=== PATIENT | female | born 1995 | race African-American/Black ===

== ENCOUNTER 2019-12-26 14:55 | Inpatient (IN) ==
[2019-12-26] MEDS ORDERED: BUTORPHANOL 2 MG/ML VIAL IV PRN (15:13)
[2019-12-26] MEDS ORDERED: MEPERIDINE 50 MG/1 ML VIAL IV PRN (15:13)
[2019-12-26] MEDS ORDERED: BUTORPHANOL 1 MG/ML VIAL IV PRN (15:13)
[2019-12-26] MEDS ORDERED: ONDANSETRON 4 MG/2 ML VIAL IV PRN (15:13)
[2019-12-26] MEDS ORDERED: DINOPROSTONE VAG GEL 10 MG SYRINGE VAG ONE (15:16)
[2019-12-26 15:35] LABS: Basophils % 0.4 % (0.0-0.8); Eosinophils # 0.1 10*3/uL (0.0-0.87); Eosinophils % 1.9 % (0.00-10.9); Hematocrit 32.5 VOL% (35.7-47.0); Hemoglobin 10.2 GM/DL (12.0-16.0); Immature Granulocytes % 0.4 %; Immature Granulocytes Absolute 0.03 #; Lymphocytes # 1.6 10*3/uL (1.4-4.0); Lymphocytes % 22.8 % (21.3-54.2); Mean Corpuscular HGB Conc 31.4 GM/DL (32-36); Mean Corpuscular Volume 80.6 FL (87-102); Mean Platelet Volume 11.9 FL (9.6-12.0); Monocytes % 8.7 % (1.7-12.7); Neutrophils % 65.8 % (38.7-73.9); Platelet Count 266 T/CUMM (130-400); Red Blood Count 4.03 MC/CUMM (3.8-5.5)
[2019-12-26 15:58] LABS: Alanine Aminotransferase 9 U/L (13-56); Albumin 3.1 G/DL (3.4-5.0); Alkaline Phosphatase 111 U/L (45-117); Aspartate Amino Transferase 28 U/L (0-37); Bilirubin,Total < 0.39 MG/DL (0.2-1.0); Blood Urea Nitrogen 13 MG/DL (7-18); Calcium 8.8 MG/DL (8.5-10.1); Estimated Glom Filtration Rate 127 ML/MIN; Glucose 81 MG/DL (74-106); Total Protein 7.5 G/DL (6.4-8.3); Uric Acid 3.9 MG/DL (2.6-6.0)
[2019-12-27] MEDS ORDERED: OXYTOCIN/LR 20 UNIT/1,000 ML BAG IV SCH (02:00)
[2019-12-27] MEDS: OXYTOCIN/LR 20 UNIT/1,000 ML BAG IV SCH ×2 (02:20→12:27)
[2019-12-27] MEDS: LACTATED RINGERS 1,000 ML IV SCH ×2 (05:00→07:14)
[2019-12-27] MEDS ORDERED: PROMETHAZINE 25 MG/1 ML VIAL IM ONE (07:22)
[2019-12-27] MEDS ORDERED: NALOXONE 0.4 MG/ML VIAL IV PRN (07:22)
[2019-12-27] MEDS ORDERED: CITRIC ACID/SODIUM CITRATE 30 ML UDCUP PO ONE (07:22)
[2019-12-27] MEDS ORDERED: ePHEDrine 50 MG/ML AMP IV PRN (07:22)
[2019-12-27] MEDS ORDERED: LACTATED RINGERS 1,000 ML IV ONE (07:22)
[2019-12-27] MEDS ORDERED: diphenhydrAMINE 50 MG/1 ML VIAL IV PRN ×2 (07:22)
[2019-12-27] MEDS ORDERED: ONDANSETRON 4 MG/2 ML VIAL IV ONE (07:22)
[2019-12-27] MEDS ORDERED: FAMOTIDINE 20 MG/2 ML VIAL IV ONE (07:22)
[2019-12-27] MEDS ORDERED: hydrOXYzine HCL 25 MG/1 ML VIAL IM PRN (07:22)
[2019-12-27] MEDS ORDERED: fentaNYL 2 MCG/ROPIV 0.2% EPID 100 ML EPIDURAL SCH (07:30)
[2019-12-27 09:19] LABS: Apearance,Urine CLEAR (Clear); Bacteria,Urine Occasional /HPF (Few); Bilirubin,Urine Negative (Negative); Blood, Urine Negative (Negative); Glucose,Urine (UA) Negative (Negative); Ketones,Urine Negative (Negative); Mucus,Urine Occasional /LPF (Occasional); Nitrite,Urine Negative (Negative); Protein,Urine Negative; RBC,Urine 1 /HPF (0-4); Squamous Epithelial Cell,Urine Occasional /HPF (0-10); Urine Color Straw (Yellow); Urine Specific Gravity 1.009 (1.001-1.035); Urine Urobilinogen < 2.0 EU/DL (0.2-1.0); WBC,Urine 1 /HPF (0-6)
[2019-12-27] MEDS ORDERED: TRANEXAMIC ACID 1,000 MG/10 ML VIAL ONE (09:28)
[2019-12-27] MEDS ORDERED: miSOPROStoL 200 MCG TABLET ONE (09:28)
[2019-12-27] MEDS ORDERED: OXYTOCIN/LR 20 UNIT/1,000 ML BAG IV ONE ×2 (09:28→13:06)
[2019-12-27] MEDS ORDERED: CARBOPROST TROMETHAMINE 250 MCG/ML AMP IM ONE (09:28)
[2019-12-27] MEDS ORDERED: METHYLERGONOVINE 0.2 MG/1 ML AMP ONE (09:28)
[2019-12-27] MEDS ORDERED: LANOLIN 50% CREAM 0.3 OZ TUBE TOP PRN (13:06)
[2019-12-27] MEDS ORDERED: DIPH/TET/ACEL PERT BOOSTER VACCINE 0.5 ML VIAL IM ONE (13:06)
[2019-12-27] MEDS ORDERED: ACETAMINOPHEN 325 MG TABLET PO PRN (13:06)
[2019-12-27] MEDS ORDERED: BENZOCAINE 20%/MENTHOL 0.5% SPRAY 56 GM CAN TOP PRN (13:06)
[2019-12-27] MEDS ORDERED: WITCH HAZEL PADS 100/JAR TOP PRN (13:06)
[2019-12-27] MEDS ORDERED: RHO(D) IMMUNE GLOBULIN 300 MCG SYRINGE IM ONE (13:06)
[2019-12-27] MEDS ORDERED: HYDROCORTISONE 2.5% RECTAL CREAM 30 GM TUBE TOP PRN (13:06)
[2019-12-27] MEDS ORDERED: oxyCODONE/ACETAMINOPHEN 5-325 MG TABLET PO PRN ×2 (13:06)
[2019-12-27] MEDS ORDERED: MEASLES/MUMPS/RUBELLA VACCINE 0.5 ML VIAL SUBCUT ONE (13:06)
[2019-12-27] MEDS ORDERED: BISACODYL 10 MG SUPP RECTAL PRN (13:06)
[2019-12-27] MEDS: IBUPROFEN 800 MG TABLET PO PRN (15:32)
[2019-12-27] MEDS: DOCUSATE SODIUM 100 MG CAPSULE PO SCH (21:25)
[2019-12-28] MEDS: IBUPROFEN 800 MG TABLET PO PRN ×2 (03:53→23:30)
[2019-12-28 06:06] LABS: Basophils # 0.1 10*3/uL (0.0-0.2); Basophils % 0.7 % (0.0-0.8); Eosinophils # 0.2 10*3/uL (0.0-0.87); Eosinophils % 1.9 % (0.00-10.9); Hematocrit 27.2 VOL% (35.7-47.0); Hemoglobin 8.5 GM/DL (12.0-16.0); Immature Granulocytes % 0.5 %; Immature Granulocytes Absolute 0.04 #; Lymphocytes # 2.7 10*3/uL (1.4-4.0); Lymphocytes % 30.9 % (21.3-54.2); Mean Corpuscular HGB Conc 31.3 GM/DL (32-36); Mean Corpuscular Volume 81.2 FL (87-102); Mean Platelet Volume 11.3 FL (9.6-12.0); Monocytes % 10.3 % (1.7-12.7); Neutrophils % 55.7 % (38.7-73.9); Platelet Count 218 T/CUMM (130-400); Red Blood Count 3.35 MC/CUMM (3.8-5.5); Red Cell Distribution Width 14.6 % (9.3-17.3); White Blood Count 8.7 T/CUMM (4-12)
[2019-12-28] MEDS: DOCUSATE SODIUM 100 MG CAPSULE PO SCH ×2 (09:59→21:51)
[2019-12-28] MEDS: FERROUS SULFATE 325 MG TABLET PO SCH (21:51)
[2019-12-29 07:17] VITALS: BP 103/52
[2019-12-29] MEDS: FERROUS SULFATE 325 MG TABLET PO SCH (10:21)
[2019-12-29] MEDS: DOCUSATE SODIUM 100 MG CAPSULE PO SCH (10:21)
== END 2019-12-29 12:20 | disposition home or self-care (01) | DRG 560 ==
LOC: N.LDOUT 14:55 → N.LD 15:00 → N.OB 12-27 13:03
PROVIDERS: ADMIT Obstetrics & Gynecology; ATTEND Obstetrics & Gynecology